=== PATIENT | male | born 1960 | race Two or more races ===

== ENCOUNTER 2020-05-23 14:39 | Outpatient (REF) | payer OTHER, SELFPAY | END 2020-05-23 14:40 | disposition home or self-care (01) | LOC: HO.HMGCLDS 14:39 | PROVIDERS: PCP Internal Medicine; Visit Provider Internal Medicine | DX: Z20.828 Contact with and (suspected) exposure to other viral communicable diseases (principal) | CPT/HCPCS: C9803; U0003 ==

== ENCOUNTER 2023-07-01 13:34 | Outpatient (AMB) | payer OTHER, SELFPAY ==
--- NOTE | 2023-07-01 15:57 | MHC.OFFWIV ---
Intake Vital Signs 07/01/23 15:58 Height 5 ft 7 in Weight 201 lb 8 oz BMI 31.6 BP 120/82 Blood Pressure Location Lt brachial Position Sitting Pulse 83 Pulse Source Pulse Oximeter Temp 98.7 F Temp Source Oral Pulse Oximetry (%) 98 Oxygen Delivery Method Room Air Oxygen Flow Rate 98.7 Intake Visit Reasons: EP sinus pressure congestion (lobby masked) Intake Note: Patient is here with mucous coming out of everywhere, congestion, fever, coughing since Saturday. Patient Tobacco Use Status: Former Tobacco user Allergies atorvastatin [From Lipitor] Adverse Reaction (Unknown, Verified 07/01/23 16:02) Muscle Pain Do you need a note to return to daycare/school/sports/work: Yes HPI HPI Comments History of Present Illness Details Get presents to the walkin today for cough since last week Patient reports has been sick with the same C/O cough, chills, fatigue, eye redness for last 5 days Cough nonproductive. Taking nyquil with moderate effect Tolerating po. denies nausea, vomiting or diarrhea denies syncope, weakness, dizziness, chest pain, palpitations He tried his wifes albuterol MDI with no change in cough PFSH Social History Patient Tobacco Use Status: Former Tobacco user Review of Systems Const All systems reviewed & are unremarkable except as noted in HPI and below Physical Exam Vital Signs: Last Vital Signs Temp 98.7 F 07/01/23 15:58 Pulse 83 07/01/23 15:58 BP 120/82 07/01/23 15:58 Pulse Ox 98 07/01/23 15:58 Oxygen Delivery Method Room Air 07/01/23 15:58 Oxygen Flow Rate 98.7 07/01/23 15:58 BMI result Body Mass Index 31.6 General: awake, alert, oriented. Answers questions appropriately. Fully engaged in examination. Skin: warm, dry, intact HEENT: TMs intact bilaterally, no redness. Posterior pharynx without erythema or exudate. Sclera injected without discharge. Cardiac: External chest normal in appearance. Respiratory: +dry cough. LSCTAB. Abdomen: without gross distension. Neurological: Oriented to person, place, time and situation. Thought process intact. Psychiatric: Appropriate mood and affect. Good judgment and insight. Assessment & Plan Assessment & Plan (1) URI (upper respiratory infection): Code(s): J06.9 - Acute upper respiratory infection, unspecified Plan URI, no abx warranted. SARS-CoV2/FLU/RSV swab collected, results pending. Patient aware he will be called with results. Benzonatate 100mg po bid as needed Rest, drink plenty of fluids, tylenol or motrin as needed. Recommend taking OTC nasal decongestants or flonase. Follow up with pcp or in clinic for any new or worsening symptoms. Go to ER for shortness of breath, chest pain, palpitations, weakness, dizziness. Orders: Orders SARS-CoV2/FLU/RSV Today J06.9 - Acute upper respiratory infection, unspecified Medications: New benzonatate 100 mg PO BID PRN 20 caps 0RF cough Coding Level of Care Code Est Pt Level 4 (91996) Diagnoses URI (upper respiratory infection) J06.9
[2023-07-01 15:58] VITALS: BP 120/82; PULSE 83; TEMP 37.1; O2SAT 98; BMI 31.6
== END 2023-07-01 16:46 | disposition home or self-care (01) ==
PROVIDERS: PCP Internal Medicine; Visit Provider Registered Nurse Emergency
DX: J06.9 Acute upper respiratory infection, unspecified (principal)
CPT/HCPCS: 99213

== ENCOUNTER 2023-07-01 16:28 | Outpatient (REF) | payer OTHER, SELFPAY | END 2023-07-01 16:29 | disposition home or self-care (01) | LOC: HO.LAB 16:28 | PROVIDERS: Visit Provider Registered Nurse Emergency | DX: Z13.89 Encounter for screening for other disorder (principal) ==

== ENCOUNTER 2023-07-03 11:30 | Outpatient (REF) | payer OTHER, SELFPAY ==
[2023-07-03 12:47] LABS: Influenza A PCR NEGATIVE (Negative); Influenza B PCR NEGATIVE (Negative); Resp Syncy Virus RNA Qual PCR POSITIVE (Negative); SARS COV2 PCR INHOUSE NEGATIVE (Negative)
== END 2023-07-03 11:31 | disposition home or self-care (01) ==
LOC: HO.LNP 11:30
PROVIDERS: Visit Provider Registered Nurse Emergency
DX: Z11.52 Encounter for screening for COVID-19 (principal); J06.9 Acute upper respiratory infection, unspecified
CPT/HCPCS: 0241U